=== PATIENT | male | born 1950 | race Caucasian/White ===

== ENCOUNTER → 2023-09-02 11:15 | Outpatient (REF) | payer MEDICARE, OTHER, SELFPAY ==
[2023-09-02 11:37] LABS: % Basophils 0.7 % (0-2); % Eosinophils 1.5 % (0-6); % Immature Granulocytes 0.2 % (0-0.5); % Lymphocytes 26.2 % (20.5-51.1); % Neutrophils 59.4 % (42.2-75.2); Absolute Eosinophils 0.1 10^3/uL (0-0.7); Absolute Lymphocytes 1.2 10^3/uL (1.2-3.4); Absolute Monocytes 0.6 10^3/uL (0.1-0.6); Absolute Neutrophils 2.7 10^3/uL (1.4-6.5); Hemoglobin 13.4 g/dL (13.0-18.0); Mean Corp Hgb Conc. 34.4 g/dL (33.0-37.0); Mean Corpuscular Hgb 31.8 pg (27.0-31.0); Mean Corpuscular Volume 92.4 fL (80.0-94.0); Mean Platelet Volume 8.3 fL (7.4-10.4); Nucleated Red Blood Cells % 0 % (-); Platelet Count 220 10^3/uL (130-400); Red Blood Cell Count 4.22 10^6/uL (4.70-6.10); Red Cell Dist. Width 11.5 % (11.5-14.5); White Blood Cell Count 4.6 10^3/uL (4.8-10.8)
[2023-09-02 11:59] LABS: INR 1.66; PT 19.8 Sec (11.4-14.6)
== END ==
LOC: REG 11:15
PROVIDERS: ATTENDING PHYSICIAN Internal Medicine Interventional Cardiology; FAMILY PHYSICIAN Internal Medicine
DX: I48.92 Unspecified atrial flutter (principal)
CPT/HCPCS: 36415; 85025; 85610

== ENCOUNTER → 2023-09-08 11:02 | Outpatient (REF) | payer MEDICARE, OTHER, SELFPAY ==
[2023-09-08 12:05] LABS: % Basophils 0.5 % (0-2); % Lymphocytes 34.2 % (20.5-51.1); % Neutrophils 49.3 % (42.2-75.2); Absolute Eosinophils 0.1 10^3/uL (0-0.7); Absolute Lymphocytes 1.3 10^3/uL (1.2-3.4); Absolute Monocytes 0.5 10^3/uL (0.1-0.6); Absolute Neutrophils 1.8 10^3/uL (1.4-6.5); Hematocrit 38.8 % (39.0-52.0); Hemoglobin 13.3 g/dL (13.0-18.0); Mean Corp Hgb Conc. 34.3 g/dL (33.0-37.0); Mean Corpuscular Hgb 31.7 pg (27.0-31.0); Mean Corpuscular Volume 92.4 fL (80.0-94.0); Mean Platelet Volume 8.4 fL (7.4-10.4); Nucleated Red Blood Cells % 0 % (-); Platelet Count 237 10^3/uL (130-400); Red Cell Dist. Width 11.4 % (11.5-14.5); White Blood Cell Count 3.7 10^3/uL (4.8-10.8)
[2023-09-08 12:31] LABS: INR 2.05; PT 23.4 Sec (11.4-14.6)
== END ==
LOC: REG 11:02
PROVIDERS: ATTENDING PHYSICIAN Internal Medicine Interventional Cardiology; FAMILY PHYSICIAN Internal Medicine
DX: I48.92 Unspecified atrial flutter (principal)
CPT/HCPCS: 36415; 85025; 85610

== ENCOUNTER → 2023-09-21 11:06 | Outpatient (REF) | payer MEDICARE, OTHER, SELFPAY ==
[2023-09-21 11:41] LABS: % Basophils 0.5 % (0-2); % Immature Granulocytes 0.2 % (0-0.5); % Lymphocytes 32.9 % (20.5-51.1); % Monocytes 12.9 % (1.7-9.3); % Neutrophils 51.5 % (42.2-75.2); Absolute Eosinophils 0.1 10^3/uL (0-0.7); Absolute Lymphocytes 1.4 10^3/uL (1.2-3.4); Absolute Monocytes 0.5 10^3/uL (0.1-0.6); Absolute Neutrophils 2.1 10^3/uL (1.4-6.5); Hematocrit 36.3 % (39.0-52.0); Hemoglobin 12.6 g/dL (13.0-18.0); Mean Corp Hgb Conc. 34.7 g/dL (33.0-37.0); Mean Corpuscular Hgb 31.3 pg (27.0-31.0); Mean Corpuscular Volume 90.3 fL (80.0-94.0); Mean Platelet Volume 8.4 fL (7.4-10.4); Nucleated Red Blood Cells % 0 % (-); Platelet Count 201 10^3/uL (130-400); Red Blood Cell Count 4.02 10^6/uL (4.70-6.10); Red Cell Dist. Width 11.7 % (11.5-14.5); White Blood Cell Count 4.1 10^3/uL (4.8-10.8)
[2023-09-21 11:58] LABS: INR 1.25; PT 15.5 Sec (11.4-14.6)
== END ==
LOC: REG 11:06
PROVIDERS: ATTENDING PHYSICIAN Internal Medicine Interventional Cardiology; FAMILY PHYSICIAN Internal Medicine
DX: I48.92 Unspecified atrial flutter (principal)
CPT/HCPCS: 36415; 85025; 85610

== ENCOUNTER 2023-10-04 16:24 | Emergency (ER) | payer MEDICARE, OTHER, SELFPAY ==
[2023-10-04 16:36] VITALS: BP 144/69
[2023-10-04 17:07] LABS: % Basophils 0.7 % (0-2); % Eosinophils 1.3 % (0-6); % Immature Granulocytes 0.2 % (0-0.5); % Lymphocytes 28.6 % (20.5-51.1); % Monocytes 12.5 % (1.7-9.3); % Neutrophils 56.7 % (42.2-75.2); Absolute Eosinophils 0.1 10^3/uL (0-0.7); Absolute Lymphocytes 1.3 10^3/uL (1.2-3.4); Absolute Monocytes 0.6 10^3/uL (0.1-0.6); Absolute Neutrophils 2.5 10^3/uL (1.4-6.5); Hematocrit 35.5 % (39.0-52.0); Hemoglobin 12.1 g/dL (13.0-18.0); Mean Corp Hgb Conc. 34.1 g/dL (33.0-37.0); Mean Corpuscular Hgb 30.9 pg (27.0-31.0); Mean Corpuscular Volume 90.6 fL (80.0-94.0); Mean Platelet Volume 8.5 fL (7.4-10.4); Nucleated Red Blood Cells % 0 % (-); Platelet Count 232 10^3/uL (130-400); Red Blood Cell Count 3.92 10^6/uL (4.70-6.10); Red Cell Dist. Width 12.1 % (11.5-14.5); White Blood Cell Count 4.5 10^3/uL (4.8-10.8)
[2023-10-04 17:14] LABS: INR 1.39; PT 16.9 Sec (11.4-14.6)
[2023-10-04 17:18] LABS: ALT (SGPT) < 10 U/L (0-50); AST (SGOT) 22 U/L (17-59); Albumin 4.1 g/dl (3.5-5.0); Alkaline Phosphatase 116 U/L (38-126); Blood Urea Nitrogen 13 mg/dl (9-20); Calcium 9.4 mg/dl (8.4-10.2); Carbon Dioxide 31 mmol/L (22-30); Chloride 98 mmol/L (98-107); Glucose 106 mg/dl (70-99); Potassium 4.4 mmol/L (3.5-5.1); Sodium 133 mmol/L (135-145); Total Bilirubin 0.4 mg/dl (0.2-1.3); Total Protein 6.7 g/dl (6.3-8.2); eGFR > 60.00
[2023-10-04 19:37] VITALS: BMI 29.4
[2023-10-04 19:53] VITALS: BP 167/78
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
== END 2023-10-04 20:25 | disposition home or self-care (01) ==
LOC: EMR 16:24
PROVIDERS: Emergency Medicine; EMERGENCY PHYSICIAN Student in an Organized Health Care Education/Training Program; FAMILY PHYSICIAN Internal Medicine Interventional Cardiology
DX: R00.2 Palpitations (principal); R03.0 Elevated blood-pressure reading, without diagnosis of hypertension
CPT/HCPCS: 99284; 80053; 85025; 85610; 93005

== ENCOUNTER → 2023-10-07 12:04 | Outpatient (REF) | payer MEDICARE, OTHER, SELFPAY ==
[2023-10-07 13:25] LABS: INR 1.77; PT 20.8 Sec (11.4-14.6)
[2023-10-07 13:27] LABS: % Basophils 0.8 % (0-2); % Eosinophils 2.4 % (0-6); % Immature Granulocytes 0.5 % (0-0.5); % Lymphocytes 34.1 % (20.5-51.1); % Monocytes 12.3 % (1.7-9.3); % Neutrophils 49.9 % (42.2-75.2); Absolute Eosinophils 0.1 10^3/uL (0-0.7); Absolute Lymphocytes 1.3 10^3/uL (1.2-3.4); Absolute Monocytes 0.5 10^3/uL (0.1-0.6); Absolute Neutrophils 1.9 10^3/uL (1.4-6.5); Hematocrit 37.3 % (39.0-52.0); Hemoglobin 12.9 g/dL (13.0-18.0); Mean Corp Hgb Conc. 34.6 g/dL (33.0-37.0); Mean Corpuscular Hgb 30.9 pg (27.0-31.0); Mean Corpuscular Volume 89.2 fL (80.0-94.0); Mean Platelet Volume 8.8 fL (7.4-10.4); Nucleated Red Blood Cells % 0 % (-); Platelet Count 216 10^3/uL (130-400); Red Blood Cell Count 4.18 10^6/uL (4.70-6.10); Red Cell Dist. Width 11.8 % (11.5-14.5); White Blood Cell Count 3.8 10^3/uL (4.8-10.8)
== END ==
LOC: REG 12:04
PROVIDERS: ATTENDING PHYSICIAN Internal Medicine Interventional Cardiology
DX: I48.92 Unspecified atrial flutter (principal)
CPT/HCPCS: 36415; 85025; 85610

== ENCOUNTER → 2023-10-21 10:24 | Outpatient (REF) | payer MEDICARE, OTHER, SELFPAY ==
[2023-10-21 11:04] LABS: % Basophils 0.7 % (0-2); % Eosinophils 1.4 % (0-6); % Lymphocytes 29.2 % (20.5-51.1); % Monocytes 13.1 % (1.7-9.3); % Neutrophils 55.6 % (42.2-75.2); Absolute Eosinophils 0.1 10^3/uL (0-0.7); Absolute Lymphocytes 1.3 10^3/uL (1.2-3.4); Absolute Monocytes 0.6 10^3/uL (0.1-0.6); Absolute Neutrophils 2.4 10^3/uL (1.4-6.5); Hematocrit 38.2 % (39.0-52.0); Hemoglobin 12.9 g/dL (13.0-18.0); Mean Corp Hgb Conc. 33.8 g/dL (33.0-37.0); Mean Corpuscular Hgb 30.6 pg (27.0-31.0); Mean Corpuscular Volume 90.7 fL (80.0-94.0); Mean Platelet Volume 8.5 fL (7.4-10.4); Nucleated Red Blood Cells % 0 % (-); Platelet Count 186 10^3/uL (130-400); Red Blood Cell Count 4.21 10^6/uL (4.70-6.10); Red Cell Dist. Width 11.9 % (11.5-14.5); White Blood Cell Count 4.3 10^3/uL (4.8-10.8)
[2023-10-21 11:22] LABS: INR 3.28; PT 33.9 Sec (11.4-14.6)
== END ==
LOC: REG 10:24
PROVIDERS: ATTENDING PHYSICIAN Internal Medicine Interventional Cardiology; FAMILY PHYSICIAN Internal Medicine
DX: I48.92 Unspecified atrial flutter (principal)
CPT/HCPCS: 36415; 85025; 85610

== ENCOUNTER → 2023-12-20 11:07 | Outpatient (REF) | payer MEDICARE, OTHER, SELFPAY ==
[2023-12-20 12:10] LABS: Blood Urea Nitrogen 9 mg/dl (9-20); Calcium 9.6 mg/dl (8.4-10.2); Carbon Dioxide 32 mmol/L (22-30); Chloride 96 mmol/L (98-107); Glucose 107 mg/dl (70-99); Potassium 4.9 mmol/L (3.5-5.1); Sodium 134 mmol/L (135-145); eGFR > 60.00
== END ==
LOC: REG 11:07
PROVIDERS: ATTENDING PHYSICIAN Internal Medicine Interventional Cardiology
DX: R26.89 Other abnormalities of gait and mobility (principal); S09.90XS Unspecified injury of head, sequela; I48.0 Paroxysmal atrial fibrillation
CPT/HCPCS: 36415; 80048

== ENCOUNTER → 2024-01-25 11:16 | Outpatient (REF) | payer MEDICARE, OTHER, SELFPAY ==
[2024-01-25 11:54] LABS: INR 1.58; PT 18.7 Sec (11.4-14.6)
== END ==
LOC: REG 11:16
PROVIDERS: ATTENDING PHYSICIAN Internal Medicine Interventional Cardiology
DX: Z79.01 Long term (current) use of anticoagulants (principal)
CPT/HCPCS: 36415; 85610

== ENCOUNTER → 2024-02-28 08:52 | Outpatient (REF) | payer MEDICARE, OTHER, SELFPAY ==
[2024-02-28 11:18] LABS: INR 1.86; PT 21.3 Sec (11.4-14.6)
== END ==
LOC: REG 08:52
PROVIDERS: ATTENDING PHYSICIAN Internal Medicine Interventional Cardiology; FAMILY PHYSICIAN Internal Medicine
DX: Z79.01 Long term (current) use of anticoagulants (principal)
CPT/HCPCS: 36415; 85610

== ENCOUNTER → 2024-03-06 12:09 | Outpatient (REF) | payer MEDICARE, OTHER, SELFPAY ==
[2024-03-06 16:51] LABS: INR 1.83
== END ==
LOC: HWLAB 12:09
PROVIDERS: ATTENDING PHYSICIAN Internal Medicine Interventional Cardiology; FAMILY PHYSICIAN Internal Medicine
DX: Z79.01 Long term (current) use of anticoagulants (principal)
CPT/HCPCS: 36415; 85610

== ENCOUNTER → 2024-03-22 10:16 | Outpatient (REF) | payer MEDICARE, OTHER, SELFPAY ==
[2024-03-22 12:27] LABS: PT 19.2 Sec (11.4-14.6)
== END ==
LOC: HWLAB 10:16
PROVIDERS: ATTENDING PHYSICIAN Internal Medicine Interventional Cardiology
DX: Z79.01 Long term (current) use of anticoagulants (principal)
CPT/HCPCS: 36415; 85610

== ENCOUNTER → 2024-04-11 12:02 | Outpatient (REF) | payer MEDICARE, OTHER, SELFPAY ==
[2024-04-11 15:39] LABS: INR 2.15; PT 23.9 Sec (11.4-14.6)
== END ==
LOC: HWLAB 12:02
PROVIDERS: ATTENDING PHYSICIAN Internal Medicine Interventional Cardiology
DX: Z79.01 Long term (current) use of anticoagulants (principal)
CPT/HCPCS: 36415; 85610

== ENCOUNTER → 2024-04-19 11:26 | Outpatient (REF) | payer MEDICARE, OTHER, SELFPAY ==
[2024-04-19 16:13] LABS: INR 1.96; PT 22.8 Sec (11.4-14.6)
== END ==
LOC: HWLAB 11:26
PROVIDERS: ATTENDING PHYSICIAN Internal Medicine Interventional Cardiology
DX: Z79.01 Long term (current) use of anticoagulants (principal)
CPT/HCPCS: 36415; 85610

== ENCOUNTER 2024-06-21 07:05 | Emergency (ER) | payer MEDICARE, OTHER, SELFPAY ==
[2024-06-21 07:19] VITALS: BP 181/80
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
[2024-06-21] MEDS: NORCO 5/325 1 TABLET PO (09:41)
[2024-06-21] MEDS: ADACEL 0.5 ML IM (09:42)
== END 2024-06-21 10:01 | disposition home or self-care (01) ==
LOC: EMR 07:05
PROVIDERS: EMERGENCY PHYSICIAN Emergency Medicine
DX: S01.01XA Laceration without foreign body of scalp, initial encounter (principal); W10.9XXA Fall (on) (from) unspecified stairs and steps, initial encounter; I48.91 Unspecified atrial fibrillation; Z79.01 Long term (current) use of anticoagulants; Z23 Encounter for immunization
CPT/HCPCS: 12002; 99284; 90471; 70450; 90715

== ENCOUNTER → 2024-06-30 10:19 | Outpatient (REF) | payer MEDICARE, OTHER, SELFPAY ==
[2024-06-30 11:08] LABS: % Basophils 0.9 % (0-2); % Eosinophils 3.5 % (0-6); % Immature Granulocytes 0.6 % (0-0.5); % Lymphocytes 30.4 % (20.5-51.1); % Neutrophils 51.6 % (42.2-75.2); Absolute Eosinophils 0.1 10^3/uL (0-0.7); Absolute Lymphocytes 1.1 10^3/uL (1.2-3.4); Absolute Monocytes 0.5 10^3/uL (0.1-0.6); Absolute Neutrophils 1.8 10^3/uL (1.4-6.5); Mean Corp Hgb Conc. 35.1 g/dL (33.0-37.0); Mean Corpuscular Hgb 30.5 pg (27.0-31.0); Mean Corpuscular Volume 86.9 fL (80.0-94.0); Mean Platelet Volume 8.4 fL (7.4-10.4); Nucleated Red Blood Cells % 0 % (-); Platelet Count 210 10^3/uL (130-400); Red Blood Cell Count 4.26 10^6/uL (4.70-6.10); Red Cell Dist. Width 11.8 % (11.5-14.5); White Blood Cell Count 3.5 10^3/uL (4.8-10.8)
[2024-06-30 11:22] LABS: INR 1.85; PT 21.6 Sec (11.4-14.6)
[2024-06-30 11:41] LABS: ALT (SGPT) 15 U/L (0-50); AST (SGOT) 25 U/L (17-59); Albumin 4.2 g/dl (3.5-5.0); Alkaline Phosphatase 91 U/L (38-126); Blood Urea Nitrogen 8 mg/dl (9-20); Calcium 8.9 mg/dl (8.4-10.2); Carbon Dioxide 31 mmol/L (22-30); Chloride 91 mmol/L (98-107); Glucose 114 mg/dl (70-99); Potassium 4.4 mmol/L (3.5-5.1); Sodium 131 mmol/L (135-145); Total Bilirubin 0.4 mg/dl (0.2-1.3); Total Protein 6.7 g/dl (6.3-8.2); eGFR > 60.00
[2024-06-30 12:21] LABS: Erythrocyte Sed Rate 7 mm/hour (0-20)
== END ==
LOC: REG 10:19
PROVIDERS: ATTENDING PHYSICIAN Internal Medicine
DX: S01.01XA Laceration without foreign body of scalp, initial encounter (principal); Z79.01 Long term (current) use of anticoagulants; I48.0 Paroxysmal atrial fibrillation; G40.901 Epilepsy, unspecified, not intractable, with status epilepticus; G40.909 Epilepsy, unspecified, not intractable, without status epilepticus; W19.XXXA Unspecified fall, initial encounter; M25.512 Pain in left shoulder; S30.0XXA Contusion of lower back and pelvis, initial encounter
CPT/HCPCS: 36415; 72114; 73030; 73502; 80053; 85025; 85610; 85652

== ENCOUNTER → 2024-09-12 11:13 | Outpatient (REF) | payer MEDICARE, OTHER, SELFPAY ==
[2024-09-12 15:56] LABS: % Basophils 0.9 % (0-2); % Eosinophils 2.9 % (0-6); % Immature Granulocytes 0.3 % (0-0.5); % Lymphocytes 33.6 % (20.5-51.1); % Monocytes 12.7 % (1.7-9.3); % Neutrophils 49.6 % (42.2-75.2); Absolute Eosinophils 0.1 10^3/uL (0-0.7); Absolute Lymphocytes 1.1 10^3/uL (1.2-3.4); Absolute Monocytes 0.4 10^3/uL (0.1-0.6); Absolute Neutrophils 1.7 10^3/uL (1.4-6.5); Hematocrit 38.2 % (39.0-52.0); Hemoglobin 13.3 g/dL (13.0-18.0); Mean Corp Hgb Conc. 34.8 g/dL (33.0-37.0); Mean Corpuscular Hgb 30.4 pg (27.0-31.0); Mean Corpuscular Volume 87.4 fL (80.0-94.0); Mean Platelet Volume 8.8 fL (7.4-10.4); Nucleated Red Blood Cells % 0 % (-); Platelet Count 189 10^3/uL (130-400); Red Blood Cell Count 4.37 10^6/uL (4.70-6.10); Red Cell Dist. Width 12.2 % (11.5-14.5); White Blood Cell Count 3.4 10^3/uL (4.8-10.8)
[2024-09-12 16:04] LABS: INR 2.14; PT 24.1 Sec (11.4-14.6)
[2024-09-12 17:20] LABS: Tegretol (Carbamazepine) 9.5 ug/ml (4-12)
[2024-09-15 01:41] LABS: Keppra (Levetiracetam) 19 ug/mL (10-40)
== END ==
LOC: HWLAB 11:13
PROVIDERS: ATTENDING PHYSICIAN Nurse Practitioner; FAMILY PHYSICIAN Internal Medicine; REFERRING PHYSICIAN Internal Medicine Interventional Cardiology
DX: G40.209 Localization-related (focal) (partial) symptomatic epilepsy and epileptic syndromes with complex partial seizures, not intractable, without status epilepticus (principal); I48.0 Paroxysmal atrial fibrillation
CPT/HCPCS: 80156; 80177; 85025; 85610

== ENCOUNTER → 2024-09-19 12:45 | Outpatient (REF) | payer MEDICARE, OTHER, SELFPAY ==
[2024-09-19 16:19] LABS: PT 22.8 Sec (11.4-14.6)
== END ==
LOC: HWLAB 12:45
PROVIDERS: ATTENDING PHYSICIAN Internal Medicine Interventional Cardiology
DX: I48.0 Paroxysmal atrial fibrillation (principal)
CPT/HCPCS: 36415; 85610

== ENCOUNTER → 2024-10-17 12:14 | Outpatient (REF) | payer MEDICARE, OTHER, SELFPAY ==
[2024-10-17 17:19] LABS: INR 1.92; PT 22.1 Sec (11.4-14.6)
== END ==
LOC: HWLAB 12:14
PROVIDERS: ATTENDING PHYSICIAN Internal Medicine Interventional Cardiology; FAMILY PHYSICIAN Internal Medicine
DX: I48.0 Paroxysmal atrial fibrillation (principal)
CPT/HCPCS: 36415; 85610

== ENCOUNTER → 2024-11-09 12:53 | Outpatient (REF) | payer MEDICARE, OTHER, SELFPAY ==
[2024-11-09 13:50] LABS: INR 1.89; PT 22.2 Sec (11.4-14.6)
== END ==
LOC: REG 12:53
PROVIDERS: ATTENDING PHYSICIAN Internal Medicine Interventional Cardiology; FAMILY PHYSICIAN Internal Medicine
DX: I48.0 Paroxysmal atrial fibrillation (principal)
CPT/HCPCS: 36415; 85610

== ENCOUNTER → 2025-02-26 11:07 | Outpatient (REF) | payer MEDICARE, OTHER, SELFPAY ==
[2025-02-26 11:52] LABS: INR 2.84; PT 29.8 Sec (11.4-14.6)
== END ==
LOC: REG 11:07
PROVIDERS: ATTENDING PHYSICIAN Internal Medicine Interventional Cardiology
DX: I48.0 Paroxysmal atrial fibrillation (principal)
CPT/HCPCS: 36415; 85610

== ENCOUNTER → 2025-03-06 12:09 | Outpatient (REF) | payer MEDICARE, OTHER, SELFPAY ==
[2025-03-06 15:47] LABS: INR 2.90; PT 30.3 Sec (11.4-14.6)
== END ==
LOC: HWLAB 12:09
PROVIDERS: ATTENDING PHYSICIAN Internal Medicine Cardiovascular Disease; FAMILY PHYSICIAN Internal Medicine
DX: Z79.01 Long term (current) use of anticoagulants (principal)
CPT/HCPCS: 36415; 85610

== ENCOUNTER → 2025-03-14 11:36 | Outpatient (REF) | payer MEDICARE, OTHER, SELFPAY ==
[2025-03-14 15:00] LABS: INR 1.92; PT 22.5 Sec (11.4-14.6)
== END ==
LOC: HWLAB 11:36
PROVIDERS: ATTENDING PHYSICIAN Internal Medicine Cardiovascular Disease; FAMILY PHYSICIAN Internal Medicine
DX: Z79.01 Long term (current) use of anticoagulants (principal)
CPT/HCPCS: 36415; 85610

== ENCOUNTER → 2025-04-02 12:44 | Outpatient (REF) | payer MEDICARE, OTHER, SELFPAY ==
[2025-04-02 16:27] LABS: INR 1.42; PT 17.6 Sec (11.4-14.6)
== END ==
LOC: HWLAB 12:44
PROVIDERS: ATTENDING PHYSICIAN Internal Medicine Cardiovascular Disease; FAMILY PHYSICIAN Internal Medicine
DX: Z79.01 Long term (current) use of anticoagulants (principal)
CPT/HCPCS: 36415; 85610